=== PATIENT | male | born 1970 | race Caucasian/White ===

== ENCOUNTER → 2016-09-29 | Outpatient (CLI) | payer BC ==
[~2016-09-29] MED LIST: ANAPROX DS550 MG PO; CEFTIN500 M1 PO; CLARITIN10 MG PO; DOXYCYCLINE100 M3 PO; EFFEXOR XR150 M1 PO; EFFEXOR75 MG PO; ENALAPRIL5 MG PO; FLONASE ALLERG9.9 ML NAS; HYDROCODONE BIT1 T11 PO; LEVOFLOXACIN500 MG PO; LOPRESSOR25 MG PO; NAPROXEN550 MG PO; NO DAILY MEDS; PREDNISONE10 MG PO; ROBITUSSIN AC 110 ML PO; VITAMIN D1000 IU PO
[2016-09-29 10:25] LABS: HEMATOCRIT 43.2 % (42.0-52.0); HEMOGLOBIN 14.3 g/dl (14.0-18.0); MEAN CELL VOLUME 84.9 fl (80.0-94.0); MEAN CORPUSCULAR HGB 28.1 pg (27.0-31.0); MEAN CORPUSCULAR HGB CONC 33.1 g/dl (33.0-37.0); MEAN PLATELET VOLUME 8.9 fl (9.6-12.3); RED BLOOD COUNT 5.09 10*6/uL (4.50-5.90); RED CELL DISTRI WIDTH 14.6 % (0-14.5); WHITE BLOOD COUNT 7.9 10*3/uL (4.8-10.8)
[2016-09-29 10:57] LABS: ALBUMIN 4.1 gm/dl (3.1-4.5); ALKALINE PHOSPHATASE 126 U/L (45-117); BILIRUBIN, TOTAL 0.5 mg/dl (0.2-1.0); BUN 17 mg/dl (7-24); C-REACTIVE PROTEIN 0.53 MG/DL (0-0.3); CARBON DIOXIDE 28 mmol/L (21-32); CHLORIDE 106 mmol/L (98-107); EST GLOM FILT AFRICAN AMERICAN > 60 ml/min; GLUCOSE 83 mg/dL (65-99); POTASSIUM 3.9 mmol/L (3.5-5.1); SGOT/AST 29 IU/L (3-35); SGPT/ALT 47 U/L (12-78); SODIUM 144 mmol/L (136-145); TOTAL PROTEIN 7.9 gm/dL (6.4-8.2)
[2016-09-30 08:12] LABS: RHEUMATOID ARTHRITIS FACTOR <10.0 IU/mL (0.0-13.9)
[2016-09-30 13:05] LABS: LYME AB/TOTAL IMMUNOGLOBULINS <0.91 ISR (0.00-0.90)
== END | disposition home or self-care (01) ==
LOC: LAB 10:02
PROVIDERS: Family Medicine
DX: M25.50 Pain in unspecified joint (principal); E55.9 Vitamin D deficiency, unspecified; M79.1 Myalgia

== ENCOUNTER → 2016-11-14 | Outpatient (CLI) | payer BC ==
[2016-11-14 10:03] LABS: HEMOGLOBIN 13.8 g/dl (14.0-18.0); MEAN CELL VOLUME 86.2 fl (80.0-94.0); MEAN CORPUSCULAR HGB 28.3 pg (27.0-31.0); MEAN CORPUSCULAR HGB CONC 32.9 g/dl (33.0-37.0); MEAN PLATELET VOLUME 9.4 fl (9.6-12.3); RED BLOOD COUNT 4.87 10*6/uL (4.50-5.90); RED CELL DISTRI WIDTH 13.5 % (0-14.5); WHITE BLOOD COUNT 7.6 10*3/uL (4.8-10.8)
[2016-11-15 05:08] LABS: IMMUNOGLOBULIN IgE 002170 95 IU/mL (0-100)
[2016-11-15 16:10] LABS: LYME AB/TOTAL IMMUNOGLOBULINS <0.91 ISR (0.00-0.90)
== END | disposition home or self-care (01) ==
LOC: LAB 09:28
PROVIDERS: Family Medicine
DX: R91.8 Other nonspecific abnormal finding of lung field (principal); R74.8 Abnormal levels of other serum enzymes; M25.50 Pain in unspecified joint; Z87.891 Personal history of nicotine dependence

== ENCOUNTER → 2016-11-15 | Outpatient (CLI) | payer BC ==
[2016-11-15 13:53] LABS: FREE T4 1.13 ng/dl (0.76-1.46)
[2016-11-15 13:58] LABS: THYROID STIM HORMONE (HS) 1.14 uIU/ml (0.358-4.75)
== END | disposition home or self-care (01) ==
LOC: LAB 12:16
PROVIDERS: Family Medicine
DX: R74.8 Abnormal levels of other serum enzymes (principal)

== ENCOUNTER → 2017-01-30 | Outpatient (CLI) | payer OTHER | END | disposition home or self-care (01) | LOC: CP 10:20 | DX: J45.40 Moderate persistent asthma, uncomplicated (principal) ==

== ENCOUNTER → 2017-02-20 | Outpatient (CLI) | payer OTHER ==
[2017-02-20 16:54] LABS: ALBUMIN 3.7 gm/dl (3.1-4.5); ALKALINE PHOSPHATASE 111 U/L (45-117); BUN 16 mg/dl (7-24); CHLORIDE 109 mmol/L (98-107); CPK 283 U/L (39-308); CREATININE 1.19 mg/dL (0.70-1.30); POTASSIUM 4.5 mmol/L (3.5-5.1); SGOT/AST 28 IU/L (3-35); SGPT/ALT 42 U/L (12-78); SODIUM 142 mmol/L (136-145); TOTAL PROTEIN 7.1 gm/dL (6.4-8.2)
== END | disposition home or self-care (01) ==
LOC: LAB 16:07
PROVIDERS: Family Medicine
DX: R79.82 Elevated C-reactive protein (CRP) (principal); M25.50 Pain in unspecified joint

== ENCOUNTER → 2017-04-01 | Outpatient (CLI) | payer OTHER | END | disposition home or self-care (01) | LOC: LAB 11:31 | DX: R53.83 Other fatigue (principal); J02.9 Acute pharyngitis, unspecified ==

== ENCOUNTER 2017-04-16 08:39 | Emergency (ER) | payer OTHER ==
[~2017-04-16] VITALS: Ht 177.8 cm; Wt 133.8 kg
[2017-04-16] MEDS ORDERED: NEURONTIN100 MG PO (09:14)
[2017-04-16] MEDS ORDERED: 'PARAFON FORTE500 M1 PO (09:14)
== END 2017-04-16 09:30 | disposition home or self-care (01) ==
LOC: ED 08:39
DX: M79.604 Pain in right leg (principal); R03.0 Elevated blood-pressure reading, without diagnosis of hypertension; Z87.01 Personal history of pneumonia (recurrent); Z79.899 Other long term (current) drug therapy

== ENCOUNTER → 2017-04-29 | Outpatient (CLI) | payer OTHER ==
[~2017-04-29] MED LIST changes: +'PARAFON FORTE500 M1 PO; +NEURONTIN100 MG PO
== END | disposition home or self-care (01) ==
LOC: MRI 01:16
DX: M47.896 Other spondylosis, lumbar region (principal); M48.061 Spinal stenosis, lumbar region without neurogenic claudication; M48.07 Spinal stenosis, lumbosacral region; D18.09 Hemangioma of other sites

== ENCOUNTER 2017-05-22 10:49 | Emergency (ER) | payer OTHER ==
[~2017-05-22] VITALS: Ht 177.8 cm; Wt 137.9 kg
[2017-05-22] MEDS ORDERED: PREDNISONE10 MG PO (11:45)
[2017-05-22] MEDS ORDERED: 'PARAFON FORTE500 M1 PO (11:45)
== END 2017-05-22 11:56 | disposition home or self-care (01) ==
LOC: ED 10:49
DX: G89.29 Other chronic pain (principal); M54.41 Lumbago with sciatica, right side; R03.0 Elevated blood-pressure reading, without diagnosis of hypertension

== ENCOUNTER → 2017-06-10 | Outpatient (CLI) | payer OTHER ==
[2017-06-10 11:07] LABS: HEMATOCRIT 47.3 % (42.0-52.0); HEMOGLOBIN 15.6 g/dl (14.0-18.0); MEAN CELL VOLUME 88.1 fl (80.0-94.0); MEAN CORPUSCULAR HGB 29.1 pg (27.0-31.0); MEAN PLATELET VOLUME 9.4 fl (9.6-12.3); RED BLOOD COUNT 5.37 10*6/uL (4.50-5.90); RED CELL DISTRI WIDTH 13.2 % (0-14.5); WHITE BLOOD COUNT 9.1 10*3/uL (4.8-10.8)
[2017-06-10 11:15] LABS: ALBUMIN 3.8 gm/dl (3.1-4.5); ALKALINE PHOSPHATASE 122 U/L (45-117); BUN 14 mg/dl (7-24); CHLORIDE 106 mmol/L (98-107); CPK 141 U/L (39-308); CREATININE 0.99 mg/dL (0.70-1.30); POTASSIUM 4.2 mmol/L (3.5-5.1); SGOT/AST 30 IU/L (3-35); SGPT/ALT 55 U/L (12-78); SODIUM 142 mmol/L (136-145); TOTAL PROTEIN 7.7 gm/dL (6.4-8.2)
== END | disposition home or self-care (01) ==
LOC: LAB 10:26
PROVIDERS: Family Medicine
DX: I10 Essential (primary) hypertension (principal); M79.1 Myalgia; D64.9 Anemia, unspecified

== ENCOUNTER 2017-06-16 18:55 | Inpatient (IN) | payer OTHER ==
[~2017-06-16] VITALS: Ht 177.8 cm; Wt 134.7 kg
--- NOTE | ~2017-06-16 | EKG ---
[place], [place] ELECTROCARDIOGRAM REPORT NAME: JANICE DONAHUE UNIT #: [id number] ROOM: 4002 DOCTOR: MIRIAM HERNANDEZ MD BIRTHDATE: [birth year] DOS: 06/17/2017 FINDINGS: Sinus tachycardia with occasional premature atrial complexes; poor R-wave progression; inferior MA, age undetermined. Abnormal ECG. No prior EKGs to compare. Miriam Hernandez MD CM:EKGRPT:ELECTROCARDIOGRAM REPORT [id number] MIRIAM HERNANDEZ MD
--- NOTE | ~2017-06-16 | WRIGHTHP ---
[place], [place] PATIENT HISTORY AND PHYSICAL EXAM NAME: JANICE DONAHUE [facility] #: [id number] UNIT #: [id number] ROOM: 4002 DOCTOR: JER GALLAGHER MD BIRTHDATE: [birth year] DOS: 06/16/2017 HISTORY OF PRESENT ILLNESS: The patient is a 47-year-old gentleman with a past medical history of: 1. Obesity. 2. Chronic lower back pains and sciatica symptoms with pains going down his extremities. 3. Benign essential hypertension. 4. Depression. 5. Generalized anxiety disorder. 6. History of 5 right lung nodules, noncancerous, status post bronchoscopy, followed by Dr. Mclain, the laundry helper. The patient presented with left lower chest pains without nausea or diaphoresis. No sweating. They were constant starting yesterday. The patient presented to the Emergency Department, his cardiac enzymes were found to be negative. The patient was admitted for chest pain protocol and he is undergoing cardiac stress testing now. No shortness of breath, no palpitations, no other GI or urinary symptoms. REVIEW OF SYSTEMS: LUNGS: No increasing shortness of breath or wheezing. GASTROINTESTINAL: No nausea, vomiting, diarrhea, constipation. CARDIOVASCULAR: Left-sided chest pains, which were constant. FAMILY HISTORY: Noncontributory. SOCIAL HISTORY: Denies smoking cigarettes, alcohol and drug abuse. ALLERGIES: No known drug allergies. HOME MEDICATIONS: The patient takes vitamins, lisinopril, gabapentin, and naproxen. PHYSICAL EXAMINATION: GENERAL: Alert and oriented x 3, obese, in no visible distress. HEENT AND NECK: Extraocular movements are intact. Sclerae are anicteric. Oral mucosa is moist and clean. No obvious facial weakness. Neck is supple without any lymphadenopathy. No thyromegaly. No JVD. No carotid arterial bruits. LUNGS: Clear to auscultation. No wheezing. No rhonchi. CARDIOVASCULAR SYSTEM: Heart rate is regular in rate and rhythm. S1 and S2 normally audible. No significant murmur or any other abnormal cardiac sounds. ABDOMEN: Soft, nontender. No obvious organomegaly. Bowel sounds are present. No obvious herniation. EXTREMITIES: Without significant cyanosis or edema. Warm to touch. CENTRAL NERVOUS SYSTEM: Alert and oriented x 3. Cranial nerves II-XII are intact. Speech is normal. The patient is able to move all extremities. Normal muscle strength. Deep tendon reflexes are equal on both sides. Plantars were downgoing. [place], [place] PATIENT HISTORY AND PHYSICAL EXAM [facility]: [facility] [id number] UNIT #: [id number] ROOM: [facility] DOCTOR: JER GALLAGHER MD BIRTHDATE: [birth year] IMPRESSION: 1. Chest pains from uncertain etiology with negative cardiac enzymes. The patient undergoing cardiac stress test at present time and if normal, he can be discharged to home. Cardiology consult has been obtained and the patient being evaluated by Cardiology. 2. Lipid profile was normal. 3. Obesity. The patient to work with dietary. 4. Benign essential hypertension with normal blood pressures with treatment. 5. D-dimers were negative. The patient possibly with pleuritic left-sided chest pains. We are waiting for cardiac stress testing results. JER GALLAGHER MD CM:HISPHYS:PATIENT HISTORY AND PHYSICAL EXAMINATION 1135 1232 JER GALLAGHER MD 06/17/17 1231 interface
--- NOTE | ~2017-06-16 | EKG ---
[place], [place] ELECTROCARDIOGRAM REPORT NAME: JANICE DONAHUE UNIT #: [id number] ROOM: 4002 DOCTOR: MIRIAM HERNANDEZ MD BIRTHDATE: [birth year] DOS: 06/17/2017 IMPRESSION: Sinus rhythm, poor R-wave progression. Abnormal ECG. No prior EKGs to compare. Miriam Hernandez MD CM:EKGRPT:ELECTROCARDIOGRAM REPORT 1903 2214 MIRIAM HERNANDEZ MD
--- NOTE | ~2017-06-16 | CON ---
[place], [place] REPORT OF CONSULTATION NAME: JANICE DONAHUE [facility] #: [id number] UNIT #: [id number] ROOM: 4002 DOCTOR: MARY SALASLATONIA BIRTHDATE: [birth year] DOS: ATTENDING PHYSICIAN: Dr. Palafox. CONSULTING PHYSICIAN: Dr. Hernandez. REASON FOR CONSULTATION: Chest pain. HISTORY OF PRESENT ILLNESS: The patient is a 47-year-old gentleman with history of hypertension on lisinopril, chronic lower back pain, past history of tobacco use and strong family history for coronary artery disease, presented to the Emergency Room with acute onset left-sided chest pain since yesterday. According to him, he woke up from the sleep with a left mammary area chest pain with radiation to the back, 10/10 and sharp in nature. He did not notice any aggravating or relieving factors. At times, he felt mild relief when he was sitting and leaning forwards worse. He did notice some mild dyspnea with chest discomfort. He denied any sweating or nausea. No previous history of any coronary artery disease or CT. He also denied diabetes or any past history of drug use. He quit smoking about 7 years back. His father had a heart attack at age of 50. He denied using any illicit drugs. No previous history of any rheumatic fever. He denied any dyspnea with exertion, nausea, vomiting, any leg edema, orthopnea, paroxysmal nocturnal dyspnea, palpitations or syncope. PAST MEDICAL HISTORY: History of hypertension, chronic lower back pain. PAST SURGICAL HISTORY: History of lung biopsy for lung nodule. ALLERGIES: No known drug allergies. CURRENT MEDICATIONS: Lisinopril 10 mg daily and naproxen as needed. SOCIAL HISTORY: He is , lives with his . He quit smoking 7 years back and denies any alcohol or illicit drug use. FAMILY HISTORY: Father had CT at age of 50 and is alive. Mother was diagnosed with breast cancer and also had chronic lower back pain. His one brother has muscular dystrophy and 1 sister and 1 brother, they are healthy. REVIEW OF SYSTEMS: GENERAL: No fever, no loss of weight or appetite. HEENT: No headache, hearing problems, vision problems, swallowing problems. No thyroid symptoms. RESPIRATORY: Left-sided chest pain as described in history of present illness. No cough or wheezing. CARDIOVASCULAR: Per HPI. GASTROINTESTINAL: No nausea, vomiting, abdominal pain, bloody or black stool. GENITOURINARY: No dysuria, increased frequency. MUSCULOSKELETAL: No significant arthritis, but he does have chronic lower back pain. NEUROLOGICAL: No tingling, numbness, weakness. He does have leg pains and [place], [place] RE[facility] OF CON[facility]ULTATION [id number] UNIT #: [id number] ROOM: 4002 DOCTOR: LATONIA HERNANDEZ MD BIRTHDATE: [birth year] chronic lower back pain and his functional capacity is limited because of that. Otherwise, he is active according to him. PHYSICAL EXAMINATION: VITAL SIGNS: On examination, his temperature 98.1, respirations 20, pulse 100, pressure 140/100, sats 97%. GENERAL: He is a middle-aged male, slightly obese, sitting comfortable. The patient is conscious, alert and oriented x 3. HEENT: Atraumatic, normocephalic. Tympanic membranes are clear. Eyes: Pupils are normal in size, light and accommodation. Nose and throat clear. NECK: Supple. No thyromegaly. No carotid bruits. No significant lymphadenopathy. CHEST: Clear to auscultation. CARDIOVASCULAR: S1, S2 normal. No S3, no S4, no murmurs. ABDOMEN: Soft. Bowel sounds. No hepatosplenomegaly. EXTREMITIES: Pulses 2+. No edema, cyanosis or clubbing. NEUROLOGIC: Grossly normal. LABORATORY DATA: Chest x-ray are normal. EKG normal sinus rhythm with occasional premature ventricular complex and atrial complexes. No ST-T changes suggestive of ischemia was noted. LABORATORY DATA: WBC 15.2, hemoglobin 15.2, hematocrit 45.5, platelets 315 and troponin 0.05 x 4. CRP 0.58. Chemistry panel, his sodium 140, potassium 4.3, chloride 103, carbon dioxide 28, BUN 17, creatinine 1.1, glucose 97. Lactic acid 1.8, uric acid 6.1, calcium 8.8, mag 2.2. LFTs are bilirubin 0.4, AST 18, ALT 41, alkaline phosphatase was 145. Last lipid panel done on 12/04/2015, cholesterol 169, LDL 94, HDL 55. IMPRESSION: 1. Atypical chest pain with a FERNANDA risk score of 1. 2. Hypertension, controlled. 3. Chronic lower back pain with a limited functional capacity. RECOMMENDATIONS: We will schedule for a Lexiscan Cardiolite myocardial perfusion scan to further evaluate his atypical chest pain in a 47-year-old male with low risk FERNANDA score and he is at intermediate risk for cardiac coronary risk. We are also going to schedule for a transthoracic echocardiogram to evaluate his atypical chest pain and mild dyspnea. Continue his current medications including lisinopril and would recommend getting a fasting lipid profile. We thank you for consulting us and will be following with you for any further recommendations after the stress and echocardiogram. [place], [place] REPORT OF CONSULTATION NAME: JANICE DONAHUE [facility] UNIT #: [id number] ROOM: 4002 DOCTOR: LATONIA HERNANDEZ MD BIRTHDATE: [birth year] Laotnia Hernandez MD CM:CONSTR:REPORT OF CONSULTATION 0939 06/17/17 1018 interface
--- NOTE | ~2017-06-16 | EKG ---
[place], [place] ELECTROCARDIOGRAM REPORT NAME: JANICE DONAHUE UNIT #: [id number] ROOM: 4002 DOCTOR: MIRIAM HERNANDEZ MD BIRTHDATE: [birth year] DOS: 06/17/2017 IMPRESSION: Sinus tachycardia with occasional premature ventricular complex, poor R-wave progression, abnormal ECG. Miriam Hernandez MD CM:EKGRPT:ELECTROCARDIOGRAM REPORT 1904 2215 MIRIAM HERNANDEZ MD
[2017-06-16 19:05] VITALS: BP 134/80
[2017-06-16 19:13] LABS: HEMATOCRIT 45.5 % (42.0-52.0); HEMOGLOBIN 15.2 g/dl (14.0-18.0); MEAN CELL VOLUME 86.5 fl (80.0-94.0); MEAN CORPUSCULAR HGB 28.9 pg (27.0-31.0); MEAN CORPUSCULAR HGB CONC 33.4 g/dl (33.0-37.0); PLATELET COUNT AUTOMATED 315 10*3/uL (130-400); RED BLOOD COUNT 5.26 10*6/uL (4.50-5.90); RED CELL DISTRI WIDTH 13.6 % (0-14.5); WHITE BLOOD COUNT 15.2 10*3/uL (4.8-10.8)
[2017-06-16 19:21] VITALS: BP 127/84
[2017-06-16 19:36] LABS: ACT PARTIAL THROMBO TIME 24.2 SECONDS (20.8-31.5)
[2017-06-16 19:38] LABS: ALBUMIN 3.4 gm/dl (3.1-4.5); ALKALINE PHOSPHATASE 145 U/L (45-117); BUN 17 mg/dl (7-24); CHLORIDE 103 mmol/L (98-107); CREATININE 1.11 mg/dL (0.70-1.30); POTASSIUM 4.3 mmol/L (3.5-5.1); SGOT/AST 18 IU/L (3-35); SGPT/ALT 41 U/L (12-78); SODIUM 140 mmol/L (136-145); TOTAL PROTEIN 7.6 gm/dL (6.4-8.2)
[2017-06-16 19:43] LABS: TROPONIN I < 0.015 ng/ml (<0.045)
[2017-06-16 19:45] LABS: TOTAL CELLS COUNTED 100 #CELLS
[2017-06-16 19:46] LABS: PLATELET SUFFICIENCY NORMAL (NORMAL)
[2017-06-16 20:06] VITALS: BP 125/85
[2017-06-16 22:25] VITALS: BP 113/78
[2017-06-16] MEDS ORDERED: PRINIVIL10 MG PO (23:05)
[2017-06-17] VITALS: BP 128/81
[2017-06-17 06:00] VITALS: BP 135/85
[2017-06-17 08:00] VITALS: BP 140/100
[2017-06-17 10:07] LABS: CHOLESTEROL 127 mg/dL (<200); HDL CHOLESTEROL 59 mg/dl (40-60); LDL CHOLESTEROL 56 mg/dL (9-159); TRIGLYCERIDES 59 mg/dl (<150); VLDL CHOLESTEROL 12 mg/dL (6-40)
[2017-06-17 12:00] VITALS: BP 131/79
== END 2017-06-17 14:43 | disposition home or self-care (01) | DRG 313 ==
LOC: ED 18:55 → EDHOLD 21:38 → 4NE 21:43
PROVIDERS: Internal Medicine Cardiovascular Disease; Student in an Organized Health Care Education/Training Program
PROC: 4A02XM4 Measurement of Cardiac Total Activity, External Approach (ICD-10-PCS; principal; 2017-06-17)
DX: R07.89 Other chest pain (principal); E66.9 Obesity, unspecified; G89.29 Other chronic pain; Z68.41 Body mass index [BMI] 40.0-44.9, adult; M54.5 Low back pain; I10 Essential (primary) hypertension; F32.9 Major depressive disorder, single episode, unspecified; F41.1 Generalized anxiety disorder; Z79.899 Other long term (current) drug therapy; Z87.01 Personal history of pneumonia (recurrent); Z72.0 Tobacco use; Z82.49 Family history of ischemic heart disease and other diseases of the circulatory system

== ENCOUNTER → 2017-07-13 | Outpatient (CLI) | payer OTHER ==
[~2017-07-13] MED LIST changes: +PRINIVIL10 MG PO
== END | disposition home or self-care (01) ==
LOC: CT 10:52
DX: R91.1 Solitary pulmonary nodule (principal); Z87.891 Personal history of nicotine dependence

== ENCOUNTER → 2017-07-25 | Outpatient (CLI) | payer OTHER ==
[2017-07-25 11:49] LABS: HEMATOCRIT 40.5 % (42.0-52.0); HEMOGLOBIN 13.6 g/dl (14.0-18.0); MEAN CELL VOLUME 86.5 fl (80.0-94.0); MEAN CORPUSCULAR HGB 29.1 pg (27.0-31.0); MEAN CORPUSCULAR HGB CONC 33.6 g/dl (33.0-37.0); MEAN PLATELET VOLUME 9.5 fl (9.6-12.3); RED BLOOD COUNT 4.68 10*6/uL (4.50-5.90); RED CELL DISTRI WIDTH 13.2 % (0-14.5); WHITE BLOOD COUNT 8.5 10*3/uL (4.8-10.8)
[2017-07-25 12:20] LABS: ALBUMIN 3.5 gm/dl (3.1-4.5); ALKALINE PHOSPHATASE 122 U/L (45-117); BUN 17 mg/dl (7-24); CHLORIDE 106 mmol/L (98-107); CPK 198 U/L (39-308); CREATININE 1.01 mg/dL (0.70-1.30); POTASSIUM 3.8 mmol/L (3.5-5.1); SGOT/AST 19 IU/L (3-35); SGPT/ALT 34 U/L (12-78); SODIUM 142 mmol/L (136-145); TOTAL PROTEIN 6.9 gm/dL (6.4-8.2)
== END | disposition home or self-care (01) ==
LOC: LAB 11:07
PROVIDERS: Family Medicine
DX: M79.606 Pain in leg, unspecified (principal); M60.9 Myositis, unspecified

== ENCOUNTER 2018-01-07 11:12 | Emergency (ER) | payer OTHER ==
[2018-01-07] MEDS ORDERED: MEDROL DOSEPAK4 MG PO (12:20)
[2018-01-07] MEDS ORDERED: CYCLOBENZAPRINE10 MG PO (12:20)
== END 2018-01-07 12:29 | disposition home or self-care (01) ==
LOC: ED 11:12
DX: M54.5 Low back pain (principal); Z79.899 Other long term (current) drug therapy

== ENCOUNTER 2019-02-22 15:14 | Emergency (ER) | payer OTHER ==
[~2019-02-22] VITALS: Ht 175.2 cm; Wt 127.0 kg
[~2019-02-22 15:14] MED LIST changes: +ACULAR 0.5%3 ML OPH; +CYCLOBENZAPRINE10 MG PO; +MEDROL DOSEPAK4 MG PO; +TRAMADOL HCL50 MG PO; +Tobrex Ophth S2.5 ML OPH
[2019-02-22] MEDS ORDERED: IBU800 MG PO (16:59)
[2019-02-22] MEDS ORDERED: NORCO 5-325 TA1 EACH PO (16:59)
== END 2019-02-22 17:15 | disposition home or self-care (01) ==
LOC: ED 15:14
DX: S52.134A Nondisplaced fracture of neck of right radius, initial encounter for closed fracture (principal); I10 Essential (primary) hypertension; Z87.891 Personal history of nicotine dependence; Z79.2 Long term (current) use of antibiotics; Z79.899 Other long term (current) drug therapy; W01.198A Fall on same level from slipping, tripping and stumbling with subsequent striking against other object, initial encounter; Y93.89 Activity, other specified; Y92.69 Other specified industrial and construction area as the place of occurrence of the external cause; Y99.0 Civilian activity done for income or pay

== ENCOUNTER → 2019-03-28 | Outpatient (CLI) | payer OTHER ==
[~2019-03-28] MED LIST changes: +IBU800 MG PO; +NORCO 5-325 TA1 EACH PO
== END | disposition home or self-care (01) ==
LOC: ORTHO 01:03
DX: S52.134D Nondisplaced fracture of neck of right radius, subsequent encounter for closed fracture with routine healing (principal); X58.XXXD Exposure to other specified factors, subsequent encounter

== ENCOUNTER → 2019-04-20 | Outpatient (CLI) | payer OTHER | END | disposition home or self-care (01) | LOC: ORTHO 00:05 | DX: S52.134D Nondisplaced fracture of neck of right radius, subsequent encounter for closed fracture with routine healing (principal); X58.XXXD Exposure to other specified factors, subsequent encounter ==

== ENCOUNTER → 2019-06-03 | Outpatient (CLI) | payer OTHER | END | disposition home or self-care (01) | LOC: ORTHO 00:12 | DX: S52.134D Nondisplaced fracture of neck of right radius, subsequent encounter for closed fracture with routine healing (principal); X58.XXXD Exposure to other specified factors, subsequent encounter ==

== ENCOUNTER → 2020-11-05 | Outpatient (CLI) | payer OTHER, BC ==
[2020-11-05 09:25] LABS: HEMATOCRIT 42.7 % (42.0-52.0); MEAN CELL VOLUME 84.1 fl (80.0-94.0); MEAN CORPUSCULAR HGB CONC 32.1 g/dl (33.0-37.0); MEAN PLATELET VOLUME 9.2 fl (9.6-12.3); RED BLOOD COUNT 5.08 10*6/uL (4.50-5.90); RED CELL DISTRI WIDTH 15.2 % (0-14.5); WHITE BLOOD COUNT 8.7 10*3/uL (4.8-10.8)
[2020-11-05 09:57] LABS: ALBUMIN 3.4 gm/dl (3.1-4.5); ALKALINE PHOSPHATASE 154 U/L (45-117); BUN 16 mg/dl (7-24); CHLORIDE 110 mmol/L (98-107); CHOLESTEROL 161 mg/dL (<200); CREATININE 1.06 mg/dL (0.70-1.30); FREE T4 1.09 ng/dl (0.76-1.46); LDL CHOLESTEROL 102 mg/dL (9-159); POTASSIUM 4.4 mmol/L (3.5-5.1); SGOT/AST 19 IU/L (3-35); SGPT/ALT 31 U/L (12-78); SODIUM 141 mmol/L (136-145); TOTAL PROTEIN 7.6 gm/dL (6.4-8.2); TRIGLYCERIDES 65 mg/dl (<150)
== END | disposition home or self-care (01) ==
LOC: LAB 09:02
PROVIDERS: ATTEND Family Medicine
DX: I10 Essential (primary) hypertension (principal); E78.00 Pure hypercholesterolemia, unspecified; E74.00 Glycogen storage disease, unspecified; F41.1 Generalized anxiety disorder; E55.9 Vitamin D deficiency, unspecified; R91.1 Solitary pulmonary nodule; Z12.5 Encounter for screening for malignant neoplasm of prostate

== ENCOUNTER → 2021-02-03 | Outpatient (CLI) | payer OTHER, BC | END | disposition home or self-care (01) | LOC: RAD 13:32 | PROVIDERS: ATTEND Family Medicine | DX: J98.11 Atelectasis (principal) ==

== ENCOUNTER → 2022-09-02 | Outpatient (CLI) | payer OTHER ==
[2022-09-02 18:15] LABS: HEMATOCRIT 44.6 % (42.0-52.0); MEAN CELL VOLUME 85.8 fl (80.0-94.0); MEAN CORPUSCULAR HGB 28.1 pg (27.0-31.0); MEAN CORPUSCULAR HGB CONC 32.7 g/dl (33.0-37.0); MEAN PLATELET VOLUME 8.8 fl (9.6-12.3); RED BLOOD COUNT 5.2 10*6/uL (4.50-5.90); RED CELL DISTRI WIDTH 13.6 % (0-14.5); WHITE BLOOD COUNT 11.9 10*3/uL (4.8-10.8)
[2022-09-02 18:35] LABS: ALKALINE PHOSPHATASE 149 U/L (46-116); BUN 17 mg/dl (9-23); CHLORIDE 105 mmol/L (98-107); CHOLESTEROL 150 mg/dL (<200); CPK 455 U/L (34-171); FREE T4 1.28 ng/dl (0.89-1.76); LDL CHOLESTEROL 86 mg/dL (9-159); POTASSIUM 4.5 mmol/L (3.4-5.1); SGPT/ALT 29 U/L (10-49); THYROID STIM HORMONE (HS) 2.255 uIU/ml (0.550-4.780); TOTAL PROTEIN 7.4 gm/dL (6.0-8.0); TRIGLYCERIDES 76 mg/dl (<150)
[2022-09-02 18:36] LABS: VITAMIN D, 25-HYDROXY 20.1 ng/mL (30-100)
[2022-09-04 22:06] LABS: TESTOSTERONE FREE, (DIRECT) 2.2 pg/mL (7.2-24.0)
== END | disposition home or self-care (01) ==
LOC: LAB 17:55
PROVIDERS: ATTEND Family Medicine
DX: Z00.00 Encounter for general adult medical examination without abnormal findings (principal); E74.00 Glycogen storage disease, unspecified; I10 Essential (primary) hypertension; F41.1 Generalized anxiety disorder; Z12.5 Encounter for screening for malignant neoplasm of prostate; M79.10 Myalgia, unspecified site; M54.50 Low back pain, unspecified; M79.672 Pain in left foot; M79.671 Pain in right foot

== ENCOUNTER → 2022-12-12 | Outpatient (CLI) | payer OTHER ==
[2022-12-12 15:01] LABS: HEMATOCRIT 44.1 % (42.0-52.0); MEAN CELL VOLUME 82.4 fl (80.0-94.0); MEAN CORPUSCULAR HGB 26.2 pg (27.0-31.0); MEAN CORPUSCULAR HGB CONC 31.7 g/dl (33.0-37.0); MEAN PLATELET VOLUME 9.4 fl (9.6-12.3); RED BLOOD COUNT 5.35 10*6/uL (4.50-5.90); RED CELL DISTRI WIDTH 14.4 % (0-14.5); WHITE BLOOD COUNT 11.6 10*3/uL (4.8-10.8)
[2022-12-12 15:46] LABS: ALKALINE PHOSPHATASE 152 U/L (46-116); BUN 12 mg/dl (9-23); CHLORIDE 107 mmol/L (98-107); POTASSIUM 3.8 mmol/L (3.4-5.1); SGPT/ALT 34 U/L (10-49); TOTAL PROTEIN 7.5 gm/dL (6.0-8.0)
== END | disposition home or self-care (01) ==
LOC: LAB 14:38
PROVIDERS: ATTEND Family Medicine
DX: E29.1 Testicular hypofunction (principal)

== ENCOUNTER → 2023-01-05 | Outpatient (CLI) | payer OTHER | END | disposition home or self-care (01) | LOC: MRI 01:45 | PROVIDERS: ATTEND Registered Nurse | DX: M51.36 Other intervertebral disc degeneration, lumbar region (principal); M48.062 Spinal stenosis, lumbar region with neurogenic claudication; M43.27 Fusion of spine, lumbosacral region; M79.671 Pain in right foot ==

== ENCOUNTER → 2023-01-31 | Outpatient (CLI) | payer OTHER ==
[2023-01-31 08:12] LABS: BASO # 0.1 10*3/uL (0.0-0.1); BASO % 0.8 % (0.0-1.0); EOS # 0.5 10*3/uL (0.0-0.4); EOS % 4.8 % (1.0-4.0); HEMATOCRIT 45.6 % (42.0-52.0); LYMPH # 2.9 10*3/uL (1.3-4.4); LYMPH % 28.7 % (27.0-41.0); MEAN CELL VOLUME 82.2 fl (80.0-94.0); MEAN CORPUSCULAR HGB 25.8 pg (27.0-31.0); MEAN CORPUSCULAR HGB CONC 31.4 g/dl (33.0-37.0); MEAN PLATELET VOLUME 9.1 fl (9.6-12.3); MONO # 0.9 10*3/uL (0.1-1.0); MONO % 8.8 % (3.0-9.0); NEUT # 5.7 10*3/uL (2.3-7.9); NEUT % 56.6 % (47.0-73.0); PLATELET COUNT AUTOMATED 361 10*3/uL (130-400); RED BLOOD COUNT 5.55 10*6/uL (4.50-5.90); RED CELL DISTRI WIDTH 16.2 % (0-14.5); WHITE BLOOD COUNT 10.1 10*3/uL (4.8-10.8)
[2023-01-31 08:34] LABS: ALKALINE PHOSPHATASE 129 U/L (46-116); BUN 12 mg/dl (9-23); CHLORIDE 109 mmol/L (98-107); POTASSIUM 4.1 mmol/L (3.4-5.1); SGPT/ALT 20 U/L (10-49); TOTAL PROTEIN 6.9 gm/dL (6.0-8.0)
== END | disposition home or self-care (01) ==
LOC: LAB 07:37
PROVIDERS: ATTEND Orthopaedic Surgery
DX: Z01.818 Encounter for other preprocedural examination (principal); M48.062 Spinal stenosis, lumbar region with neurogenic claudication; M43.16 Spondylolisthesis, lumbar region; I49.3 Ventricular premature depolarization; R00.0 Tachycardia, unspecified

== ENCOUNTER 2023-02-04 10:51 | Inpatient (IN) | payer OTHER ==
[~2023-02-04] VITALS: Ht 175.3 cm; Wt 127.0 kg
[2023-02-04 11:20] VITALS: BP 148/84
[2023-02-04 11:29] LABS: BASO # 0.1 10*3/uL (0.0-0.1); BASO % 0.7 % (0.0-1.0); EOS # 0.4 10*3/uL (0.0-0.4); EOS % 3.4 % (1.0-4.0); HEMATOCRIT 46.5 % (42.0-52.0); LYMPH # 2.5 10*3/uL (1.3-4.4); LYMPH % 23.5 % (27.0-41.0); MEAN CELL VOLUME 81.9 fl (80.0-94.0); MEAN CORPUSCULAR HGB 25.7 pg (27.0-31.0); MEAN CORPUSCULAR HGB CONC 31.4 g/dl (33.0-37.0); MEAN PLATELET VOLUME 9.3 fl (9.6-12.3); MONO # 0.6 10*3/uL (0.1-1.0); NEUT # 6.9 10*3/uL (2.3-7.9); NEUT % 65.7 % (47.0-73.0); PLATELET COUNT AUTOMATED 355 10*3/uL (130-400); RED BLOOD COUNT 5.68 10*6/uL (4.50-5.90); RED CELL DISTRI WIDTH 16.2 % (0-14.5); WHITE BLOOD COUNT 10.4 10*3/uL (4.8-10.8)
[2023-02-04 11:40] LABS: INTERNATIONAL NORM RATIO 1.1 (2.0-3.5)
[2023-02-04 11:55] LABS: ALKALINE PHOSPHATASE 130 U/L (46-116); BUN 12 mg/dl (9-23); CHLORIDE 108 mmol/L (98-107); POTASSIUM 4.8 mmol/L (3.4-5.1); SGPT/ALT 25 U/L (10-49); TOTAL PROTEIN 6.8 gm/dL (6.0-8.0)
[2023-02-04 12:35] VITALS: BP 125/50
[2023-02-04 14:33] VITALS: BP 104/75
[2023-02-04 15:12] VITALS: BP 119/69
[2023-02-04] MEDS ORDERED: LOSARTAN POTAS100 M1 PO (15:44)
[2023-02-04] MEDS ORDERED: CYMBALTA60 MG PO (15:45)
[2023-02-04 20:00] VITALS: BP 134/83
[2023-02-05] VITALS: BP 124/91
[2023-02-05 06:06] LABS: ALKALINE PHOSPHATASE 129 U/L (46-116); BUN 11 mg/dl (9-23); CHLORIDE 105 mmol/L (98-107); POTASSIUM 3.9 mmol/L (3.4-5.1); SGPT/ALT 17 U/L (10-49); TOTAL PROTEIN 6.4 gm/dL (6.0-8.0)
[2023-02-05 06:40] LABS: BASO # 0.1 10*3/uL (0.0-0.1); BASO % 0.7 % (0.0-1.0); EOS # 0.3 10*3/uL (0.0-0.4); EOS % 3.6 % (1.0-4.0); HEMATOCRIT 42.8 % (42.0-52.0); LYMPH # 1.3 10*3/uL (1.3-4.4); LYMPH % 14.8 % (27.0-41.0); MEAN CELL VOLUME 83.6 fl (80.0-94.0); MEAN CORPUSCULAR HGB 25.8 pg (27.0-31.0); MEAN CORPUSCULAR HGB CONC 30.8 g/dl (33.0-37.0); MEAN PLATELET VOLUME 9.8 fl (9.6-12.3); MONO # 1.1 10*3/uL (0.1-1.0); NEUT % 68.2 % (47.0-73.0); PLATELET COUNT AUTOMATED 282 10*3/uL (130-400); RED BLOOD COUNT 5.12 10*6/uL (4.50-5.90); RED CELL DISTRI WIDTH 16.3 % (0-14.5); WHITE BLOOD COUNT 8.8 10*3/uL (4.8-10.8)
[2023-02-05 08:00] VITALS: BP 144/88
[2023-02-05 16:00] VITALS: BP 128/83
[2023-02-05 20:00] VITALS: BP 125/76
[2023-02-06] VITALS: BP 132/84
[2023-02-06 08:00] VITALS: BP 119/62
[2023-02-06] MEDS ORDERED: LOPRESSOR50 M1 PO ×2 (13:20→14:39)
[2023-02-06] MEDS ORDERED: ASPIRIN ADULT L81 M1 PO ×2 (13:20→14:39)
[2023-02-06] MEDS ORDERED: XARE20MG PO ×2 (13:20→14:39)
[2023-02-06] MEDS ORDERED: LIPITOR40 MG PO ×2 (13:20→14:39)
== END 2023-02-06 15:24 | disposition home or self-care (01) | DRG 308 ==
LOC: ED 10:51 → EDHOLD 12:30 → 4E 12:30 → EDHOLD 12:34 → 4E 14:40
PROVIDERS: Emergency Medicine; Family Medicine; ADMIT Student in an Organized Health Care Education/Training Program; ATTEND Student in an Organized Health Care Education/Training Program
PROC: 4A02XM4 Measurement of Cardiac Total Activity, External Approach (ICD-10-PCS; principal; 2023-02-05)
PROC: 3E073KZ Introduction of Other Diagnostic Substance into Coronary Artery, Percutaneous Approach (ICD-10-PCS; 2023-02-05)
DX: I48.0 Paroxysmal atrial fibrillation (principal); N17.0 Acute kidney failure with tubular necrosis; E87.20 Acidosis, unspecified; Z68.41 Body mass index [BMI] 40.0-44.9, adult; I10 Essential (primary) hypertension; G89.29 Other chronic pain; E03.9 Hypothyroidism, unspecified; F41.1 Generalized anxiety disorder; R71.8 Other abnormality of red blood cells; R73.9 Hyperglycemia, unspecified; E66.01 Morbid (severe) obesity due to excess calories; Z87.891 Personal history of nicotine dependence; Z83.3 Family history of diabetes mellitus; Z82.49 Family history of ischemic heart disease and other diseases of the circulatory system; Z80.3 Family history of malignant neoplasm of breast

== ENCOUNTER → 2023-02-25 | Outpatient (CLI) | payer OTHER ==
[~2023-02-25] MED LIST changes: +ASPIRIN ADULT L81 M1 PO; +CYMBALTA60 MG PO; +LIPITOR40 MG PO; +LOPRESSOR50 M1 PO; +LOSARTAN POTAS100 M1 PO; +XARE20MG PO
[2023-02-25 12:36] LABS: BASO % 0.3 % (0.0-1.0); EOS # 0.2 10*3/uL (0.0-0.4); EOS % 1.4 % (1.0-4.0); HEMATOCRIT 44.4 % (42.0-52.0); LYMPH # 2.4 10*3/uL (1.3-4.4); MEAN CELL VOLUME 82.4 fl (80.0-94.0); MEAN CORPUSCULAR HGB 25.8 pg (27.0-31.0); MEAN CORPUSCULAR HGB CONC 31.3 g/dl (33.0-37.0); MEAN PLATELET VOLUME 8.6 fl (9.6-12.3); MONO # 1.4 10*3/uL (0.1-1.0); MONO % 9.8 % (3.0-9.0); NEUT % 70.7 % (47.0-73.0); PLATELET COUNT AUTOMATED 561 10*3/uL (130-400); RED BLOOD COUNT 5.39 10*6/uL (4.50-5.90); RED CELL DISTRI WIDTH 16.3 % (0-14.5); WHITE BLOOD COUNT 14.1 10*3/uL (4.8-10.8)
== END | disposition home or self-care (01) ==
LOC: LAB 12:07
PROVIDERS: ATTEND Nurse Practitioner Family
DX: M54.16 Radiculopathy, lumbar region (principal); Z98.1 Arthrodesis status

== ENCOUNTER → 2023-03-12 | Outpatient (CLI) | payer OTHER ==
[~2023-03-12] MED LIST changes: +CEPHALEXIN500 M1 PO
[2023-03-12 12:19] LABS: HEMATOCRIT 42.7 % (42.0-52.0); MEAN CELL VOLUME 82.8 fl (80.0-94.0); MEAN CORPUSCULAR HGB 25.2 pg (27.0-31.0); MEAN CORPUSCULAR HGB CONC 30.4 g/dl (33.0-37.0); MEAN PLATELET VOLUME 8.9 fl (9.6-12.3); RED BLOOD COUNT 5.16 10*6/uL (4.50-5.90); RED CELL DISTRI WIDTH 16.1 % (0-14.5)
[2023-03-12 12:47] LABS: ALKALINE PHOSPHATASE 168 U/L (46-116); BUN 11 mg/dl (9-23); CHLORIDE 109 mmol/L (98-107); CPK 110 U/L (34-171); POTASSIUM 4.5 mmol/L (3.4-5.1); SGPT/ALT 26 U/L (10-49); TOTAL PROTEIN 7.3 gm/dL (6.0-8.0)
== END | disposition home or self-care (01) ==
LOC: LAB 11:53
PROVIDERS: ATTEND Family Medicine
DX: M54.50 Low back pain, unspecified (principal); M25.50 Pain in unspecified joint; M79.10 Myalgia, unspecified site

== ENCOUNTER → 2023-08-27 | Outpatient (CLI) | payer OTHER ==
[2023-08-27 11:37] LABS: HEMATOCRIT 48.5 % (42.0-52.0); MEAN CELL VOLUME 80.6 fl (80.0-94.0); MEAN CORPUSCULAR HGB 23.3 pg (27.0-31.0); MEAN CORPUSCULAR HGB CONC 28.9 g/dl (33.0-37.0); MEAN PLATELET VOLUME 8.9 fl (9.6-12.3); RED BLOOD COUNT 6.02 10*6/uL (4.50-5.90); RED CELL DISTRI WIDTH 16.6 % (0-14.5); WHITE BLOOD COUNT 12.4 10*3/uL (4.8-10.8)
[2023-08-27 11:57] LABS: ALKALINE PHOSPHATASE 167 U/L (46-116); BUN 14 mg/dl (9-23); CHLORIDE 105 mmol/L (98-107); CHOLESTEROL 110 mg/dL (<200); LDL CHOLESTEROL 59 mg/dL (9-159); POTASSIUM 4.2 mmol/L (3.4-5.1); SGPT/ALT 26 U/L (5-49); TOTAL PROTEIN 7.8 gm/dL (6.0-8.0); TRIGLYCERIDES 71 mg/dl (<150); URIC ACID 7.4 mg/dL (3.7-9.2)
[2023-08-27 12:39] LABS: VITAMIN D, 25-HYDROXY 14.7 ng/mL (30-100)
[2023-08-28 14:08] LABS: SJOGREN ANTI-SS-A <0.2 AI (0.0-0.9); SJOREN AB, ANTI-SS-B <0.2 AI (0.0-0.9)
[2023-08-29 19:07] LABS: TESTOSTERONE FREE, (DIRECT) 1.1 pg/mL (7.2-24.0)
== END | disposition home or self-care (01) ==
LOC: LAB 11:08
PROVIDERS: ATTEND Family Medicine
DX: M79.89 Other specified soft tissue disorders (principal); R10.2 Pelvic and perineal pain; E55.9 Vitamin D deficiency, unspecified; F41.1 Generalized anxiety disorder; E74.00 Glycogen storage disease, unspecified; R53.83 Other fatigue; F32.A Depression, unspecified

== ENCOUNTER → 2023-11-04 | Outpatient (CLI) | payer OTHER | END | disposition home or self-care (01) | LOC: LAB 10:22 | PROVIDERS: ATTEND Internal Medicine Critical Care Medicine | DX: R53.83 Other fatigue (principal); G47.33 Obstructive sleep apnea (adult) (pediatric); D14.32 Benign neoplasm of left bronchus and lung; R91.8 Other nonspecific abnormal finding of lung field ==

== ENCOUNTER 2024-06-16 15:03 | Inpatient (IN) | payer OTHER ==
[~2024-06-16] VITALS: Ht 175.2 cm; Wt 142.6 kg
[2024-06-16 15:23] VITALS: BP 138/63
[2024-06-16 16:36] LABS: BILIRUBIN Negative (Negative); BLOOD Negative (Negative); CLARITY Clear (Clear); COLOR Yellow (Yellow); GLUCOSE Negative (Negative); KETONE Trace (Negative); LEUKO ESTERASE Negative (Negative); NITRITE Negative (Negative); SPECIFIC GRAVITY 1.025 (1.001-1.030); UROBILINOGEN 0.2 E.U./dl (0.0-1.0)
[2024-06-16] MEDS ORDERED: ASPIRIN, CHEWABLE 81 MG TAB PO ONE (16:45)
[2024-06-16] MEDS ORDERED: NITROGLYCERIN 1 IN PACKET T ONE (16:50)
[2024-06-16 16:54] LABS: EPITHELIAL CELLS 0-2; MUCOUS 1+; RBC 0-2 rbc/hpf (0-2)
[2024-06-16 17:00] LABS: BASO # 0.1 10*3/uL (0.0-0.1); BASO % 0.7 % (0.0-1.0); EOS # 0.3 10*3/uL (0.0-0.4); EOS % 3.3 % (1.0-4.0); HEMATOCRIT 43.8 % (42.0-52.0); MEAN CELL VOLUME 83.6 fl (80.0-94.0); MEAN CORPUSCULAR HGB 25.6 pg (27.0-31.0); MEAN CORPUSCULAR HGB CONC 30.6 g/dl (33.0-37.0); MEAN PLATELET VOLUME 8.8 fl (9.6-12.3); MONO # 0.9 10*3/uL (0.1-1.0); MONO % 8.4 % (3.0-9.0); NEUT # 6.2 10*3/uL (2.3-7.9); NEUT % 61.4 % (47.0-73.0); PLATELET COUNT AUTOMATED 313 10*3/uL (130-400); RED BLOOD COUNT 5.24 10*6/uL (4.50-5.90); RED CELL DISTRI WIDTH 15.2 % (0-14.5); WHITE BLOOD COUNT 10.1 10*3/uL (4.8-10.8)
[2024-06-16 17:15] LABS: ACT PARTIAL THROMBO TIME 30.6 SECONDS (20.0-32.1)
[2024-06-16 17:22] LABS: ALKALINE PHOSPHATASE 134 U/L (46-116); BUN 10 mg/dl (9-23); CHLORIDE 108 mmol/L (98-107); CPK 263 U/L (34-171); LIPASE 43 U/L (12-53); POTASSIUM 4.5 mmol/L (3.4-5.1); SGPT/ALT 47 U/L (5-49)
[2024-06-16] MEDS ORDERED: BUSPAR15 MG PO (18:09)
[2024-06-16] MEDS ORDERED: GABAPENTIN600 MG PO (18:09)
[2024-06-16] MEDS ORDERED: Lopressor25 MG PO (18:11)
[2024-06-16] MEDS ORDERED: TIKOSYN500 MCG PO (18:12)
[2024-06-16] MEDS ORDERED: PROZAC10 MG PO (18:12)
[2024-06-16] MEDS ORDERED: VALIUM10 MG PO (18:12)
[2024-06-16 18:30] VITALS: BP 130/62; BP 145/64
[2024-06-16] MEDS ORDERED: Technetium Tc 99M Tetrofosmi 0.23 MG KIT IJ SCH (19:20)
[2024-06-16 20:00] VITALS: BP 107/68
[2024-06-16] MEDS ORDERED: RIVAROXABAN 20 MG TAB PO SCH (21:20)
[2024-06-16] MEDS ORDERED: Duloxetine Hydrochloride 60 MG CAP PO SCH (22:00)
[2024-06-16] MEDS ORDERED: GABAPENTIN 600 MG TAB PO SCH (22:00)
[2024-06-16] MEDS ORDERED: busPIRone Hydrochloride 15 MG TAB PO SCH (22:00)
[2024-06-16] MEDS ORDERED: Metoprolol Tartrate 25 MG TAB PO SCH (22:00)
[2024-06-17] VITALS: BP 108/69
[2024-06-17] MEDS ORDERED: Regadenoson 0.4 MG/5 ML SYR IV ONE (06:47)
[2024-06-17 08:00] VITALS: BP 129/56
[2024-06-17] MEDS ORDERED: ASPIRIN ENTERIC COATED 81 MG TAB PO SCH (10:00)
[2024-06-17] MEDS ORDERED: ATORVASTATIN CALCIUM 40 MG TABLET PO SCH (10:00)
[2024-06-17] MEDS ORDERED: RIVAROXABAN 20 MG TAB PO SCH (10:00)
[2024-06-17 12:00] VITALS: BP 124/76
== END 2024-06-17 13:52 | disposition home or self-care (01) | DRG 308 ==
LOC: ED → EDHOLD 17:55 → 4E 18:04
PROVIDERS: Emergency Medicine; ADMIT Internal Medicine; ATTEND Internal Medicine
PROC: 4A02XM4 Measurement of Cardiac Total Activity, External Approach (ICD-10-PCS; principal; 2024-06-17)
PROC: 3E073KZ Introduction of Other Diagnostic Substance into Coronary Artery, Percutaneous Approach (ICD-10-PCS; 2024-06-17)
DX: I48.0 Paroxysmal atrial fibrillation (principal); N17.0 Acute kidney failure with tubular necrosis; I24.9 Acute ischemic heart disease, unspecified; F33.1 Major depressive disorder, recurrent, moderate; E87.20 Acidosis, unspecified; Z68.42 Body mass index [BMI] 45.0-49.9, adult; Z83.3 Family history of diabetes mellitus; I25.10 Atherosclerotic heart disease of native coronary artery without angina pectoris; E66.01 Morbid (severe) obesity due to excess calories; F41.1 Generalized anxiety disorder; G89.29 Other chronic pain; M54.50 Low back pain, unspecified; E87.8 Other disorders of electrolyte and fluid balance, not elsewhere classified; R73.9 Hyperglycemia, unspecified; D64.9 Anemia, unspecified; M48.061 Spinal stenosis, lumbar region without neurogenic claudication; Z82.49 Family history of ischemic heart disease and other diseases of the circulatory system; Z80.3 Family history of malignant neoplasm of breast

== ENCOUNTER 2025-03-17 16:30 | Emergency (ER) | payer OTHER ==
[~2025-03-17] VITALS: Ht 175.2 cm; Wt 138.8 kg
[~2025-03-17 16:30] MED LIST changes: +BUSPAR15 MG PO; +GABAPENTIN600 MG PO; +Lopressor25 MG PO; +PROZAC10 MG PO; +TIKOSYN500 MCG PO; +VALIUM10 MG PO
[2025-03-17 17:19] LABS: BASO # 0.1 10*3/uL (0.0-0.1); BASO % 0.6 % (0.0-1.0); EOS # 0.2 10*3/uL (0.0-0.4); EOS % 2.4 % (1.0-4.0); MEAN CELL VOLUME 82.8 fl (80.0-94.0); MEAN CORPUSCULAR HGB 25.8 pg (27.0-31.0); MEAN PLATELET VOLUME 8.9 fl (9.6-12.3); MONO # 0.7 10*3/uL (0.1-1.0); MONO % 7.8 % (3.0-9.0); NEUT # 5.9 10*3/uL (2.3-7.9); NEUT % 63.5 % (47.0-73.0); NUCLEATED RED BLOOD CELL 0.0 % (0.0-0.0); NUCLEATED RED BLOOD CELL 0.0 10*3/uL (0.0-0.0); PLATELET COUNT AUTOMATED 335 10*3/uL (130-400); RED CELL DISTRI WIDTH 18.6 % (0-14.5)
[2025-03-17 17:45] LABS: BUN 12 mg/dl (9-23)
== END 2025-03-17 20:11 | disposition home or self-care (01) ==
LOC: ED 16:30
PROVIDERS: Nurse Practitioner Family
DX: R00.2 Palpitations (principal); Z79.899 Other long term (current) drug therapy; Z90.89 Acquired absence of other organs; Z87.891 Personal history of nicotine dependence

== ENCOUNTER → 2025-04-12 | Outpatient (CLI) | payer OTHER ==
[~2025-04-12] MED LIST changes: +IOHEXOL 300 MG/ML 100 ML VIAL IV ONE; +IOHEXOL 300 MG/ML 100 ML VIAL ONE
== END | disposition home or self-care (01) ==
LOC: CT 00:31
PROVIDERS: ATTEND Family Medicine
DX: R91.8 Other nonspecific abnormal finding of lung field (principal); R06.02 Shortness of breath

== ENCOUNTER → 2025-05-24 | Outpatient (CLI) | payer OTHER ==
[~2025-05-24] MED LIST changes: -IOHEXOL 300 MG/ML 100 ML VIAL IV ONE; -IOHEXOL 300 MG/ML 100 ML VIAL ONE
[2025-05-24 12:19] LABS: MEAN CELL VOLUME 84.1 fl (80.0-94.0); MEAN CORPUSCULAR HGB 27.2 pg (27.0-31.0); MEAN PLATELET VOLUME 8.9 fl (9.6-12.3); NUCLEATED RED BLOOD CELL 0.0 % (0.0-0.0); NUCLEATED RED BLOOD CELL 0.0 10*3/uL (0.0-0.0); PLATELET COUNT AUTOMATED 354.0 10*3/uL (130-400); RED CELL DISTRI WIDTH 15.8 % (0-14.5)
[2025-05-24 12:55] LABS: BUN 16 mg/dl (9-23); CPK 295 U/L (34-171); LDL CHOLESTEROL 84 mg/dL (9-159); SGPT/ALT 30 U/L (5-49)
[2025-05-24 12:57] LABS: VITAMIN D, 25-HYDROXY 19.4 ng/mL (30-100)
== END | disposition home or self-care (01) ==
LOC: LAB 11:53
PROVIDERS: ATTEND Family Medicine
DX: E78.00 Pure hypercholesterolemia, unspecified (principal); R53.83 Other fatigue; E55.9 Vitamin D deficiency, unspecified; F41.1 Generalized anxiety disorder; E74.00 Glycogen storage disease, unspecified